=== PATIENT | female | born 1995 | race Caucasian/White ===

== ENCOUNTER 2019-06-05 11:03 | Emergency (ER) | payer OTHER ==
[~2019-06-05] VITALS: Ht 165.1 cm; Wt 50.0 kg
[2019-06-05 12:12] LABS: BASOPHILS % (AUTO) 0.8 % (0-1); EOSINOPHILS # (AUTO) 0.2 X10'3 (0-0.9); EOSINOPHILS % (AUTO) 3.2 % (0-6); HEMATOCRIT 43.4 % (35.0-45.0); LYMPHOCYTES # (AUTO) 2.8 X10'3 (1.1-4.8); LYMPHOCYTES % (AUTO) 46.1 % (21-51); MEAN CORPUSCULAR HEMOGLOBIN 31.8 PG (27.0-31.0); MEAN CORPUSCULAR HGB CONC 34.5 g/dL (33.0-36.5); MEAN CORPUSCULAR VOLUME 91.9 FL (78-98); MEAN PLATELET VOLUME 8.6 FL (7.4-10.4); MONOCYTES # (AUTO) 0.5 X10'3 (0-0.9); MONOCYTES % (AUTO) 8.5 % (2-12); NEUTROPHILS # (AUTO) 2.5 X10'3 (1.8-7.7); NEUTROPHILS % (AUTO) 41.4 % (42-75); PLATELET COUNT 215 X10'3 (140-440); RED BLOOD COUNT 4.72 X10'6 (4.20-5.60); RED CELL DISTRIBUTION WIDTH 13.6 % (11.5-14.5); WHITE BLOOD COUNT 6.1 X10'3 (4.5-11.0)
[2019-06-05 12:46] LABS: ALANINE AMINOTRANSFERASE 20 U/L (12-78); ALBUMIN 4.3 G/DL (3.4-5.0); ALBUMIN/GLOBULIN RATIO 1.1 (1.1-1.5); ALKALINE PHOSPHATASE 71 IU/L (46-116); ANION GAP 8 (8-16); ASPARTATE AMINO TRANSFERASE 19 U/L (10-37); BILIRUBIN,TOTAL 0.8 MG/DL (0.1-1.0); BLOOD UREA NITROGEN 7 MG/DL (7-18); BUN/CREATININE RATIO 10.4 (6.6-38.0); CALCIUM 9.2 MG/DL (8.5-10.1); CHLORIDE 107 MMOL/L (99-107); CREATININE 0.67 MG/DL (0.40-0.90); GLUCOSE 90 MG/DL (70-104); POTASSIUM 3.8 MMOL/L (3.5-5.1); SODIUM 142 MMOL/L (135-145); TOTAL CARBON DIOXIDE 27.5 MMOL/L (24-32); TOTAL PROTEIN 8.3 G/DL (6.4-8.2); eGFR > 90 ML/MIN
[2019-06-05 12:55] VITALS: BP 130/76
[2019-06-05 13:25] LABS: URINE HCG NEGATIVE (NEG)
[2019-06-05 13:27] LABS: CLARITY,URINE CLOUDY (Clear); COLOR,URINE YELLOW (Yellow); GLUCOSE, URINE NEGATIVE (Neg); KETONES,URINE NEGATIVE (Neg); LEUKOCYTE ESTERASE ,URINE NEGATIVE (Neg); NITRITES, URINE POSITIVE (Neg); OCCULT BLOOD,URINE NEGATIVE (Neg); PROTEIN,URINE NEGATIVE (Neg)
[2019-06-05 13:28] LABS: UA COLLECTION TYPE CLN CATCH MIDSTREAM
[2019-06-05 13:32] LABS: SQUAMOUS EPITHELIAL CELL,UR MANY /LPF (FEW)
[2019-06-05 13:33] LABS: BACTERIA,URINE 4+ /HPF (Neg); RBC,URINE NONE SEEN /HPF (0-2); WBC,URINE 0-4 /HPF (0-4)
== END 2019-06-05 13:37 | disposition home or self-care (01) ==
LOC: ER 11:03
DX: K59.00 Constipation, unspecified (principal); R10.32 Left lower quadrant pain
CPT/HCPCS: 36415; 80053; 81001; 81025; 85025; 85610; 99283

== ENCOUNTER 2020-10-13 16:56 | Emergency (ER) | payer MEDICAID, OTHER ==
[~2020-10-13] VITALS: Ht 165.1 cm; Wt 47.7 kg
== END 2020-10-13 18:05 | disposition home or self-care (01) ==
LOC: ER 16:56
DX: R13.10 Dysphagia, unspecified (principal); J02.9 Acute pharyngitis, unspecified; R50.9 Fever, unspecified; F12.90 Cannabis use, unspecified, uncomplicated; F17.200 Nicotine dependence, unspecified, uncomplicated
CPT/HCPCS: 87081; 87880; 99283

== ENCOUNTER 2021-02-17 15:47 | Emergency (ER) | payer OTHER, MEDICAID ==
[~2021-02-17] VITALS: Ht 165.1 cm; Wt 47.7 kg
[2021-02-17 16:57] VITALS: BP 103/73
== END 2021-02-17 16:59 | disposition home or self-care (01) ==
LOC: ER 15:48
DX: S00.03XA Contusion of scalp, initial encounter (principal); R51.9 Headache, unspecified; M25.522 Pain in left elbow; R11.2 Nausea with vomiting, unspecified; F12.90 Cannabis use, unspecified, uncomplicated; V87.7XXA Person injured in collision between other specified motor vehicles (traffic), initial encounter; Y93.89 Activity, other specified; Y92.89 Other specified places as the place of occurrence of the external cause; Y99.8 Other external cause status
CPT/HCPCS: 73080; 99283

== ENCOUNTER 2022-11-03 05:35 | Emergency (ER) | payer MEDICAID ==
[~2022-11-03] VITALS: Ht 167.6 cm; Wt 54.5 kg
[2022-11-03 05:41] VITALS: BP 148/105
== END 2022-11-03 08:50 | disposition home or self-care (01) ==
LOC: ER 05:36
DX: S90.32XA Contusion of left foot, initial encounter (principal); F12.90 Cannabis use, unspecified, uncomplicated; Z79.899 Other long term (current) drug therapy; Z98.890 Other specified postprocedural states; W22.8XXA Striking against or struck by other objects, initial encounter; Y93.89 Activity, other specified; Y92.89 Other specified places as the place of occurrence of the external cause; Y99.8 Other external cause status
CPT/HCPCS: 73630; 99283

== ENCOUNTER 2023-03-11 19:10 | Emergency (ER) | payer MEDICAID ==
[~2023-03-11] VITALS: Ht 167.6 cm; Wt 49.1 kg
[2023-03-11 19:13] VITALS: BP 109/68; PULSE 67; RESP 14; TEMP 98.3; O2SAT 100
[2023-03-11] MEDS ORDERED: AMOX-580 PO (22:15)
[2023-03-11] MEDS ORDERED: amox tr/potassium clavulanate 875/125mg TAB PO ONE (22:15)
== END 2023-03-11 22:21 | disposition home or self-care (01) ==
LOC: ER 19:11
DX: J02.9 Acute pharyngitis, unspecified (principal); R22.1 Localized swelling, mass and lump, neck; F12.90 Cannabis use, unspecified, uncomplicated; Z79.2 Long term (current) use of antibiotics
CPT/HCPCS: 87880; 99283

== ENCOUNTER 2023-09-07 08:01 | Emergency (ER) | payer MEDICAID ==
[~2023-09-07] VITALS: Ht 167.6 cm; Wt 50.5 kg
[2023-09-07 08:21] VITALS: PULSE 68
[2023-09-07 09:53] LABS: URINE HCG NEGATIVE (NEG)
[2023-09-07 09:58] LABS: BILIRUBIN,URINE NEGATIVE (Neg); CLARITY,URINE SLIGHTLY CLOUDY (Clear); COLOR,URINE YELLOW (Yellow); GLUCOSE, URINE NEGATIVE (Neg); KETONES,URINE NEGATIVE (Neg); LEUKOCYTE ESTERASE ,URINE NEGATIVE (Neg); NITRITES, URINE NEGATIVE (Neg); OCCULT BLOOD,URINE NEGATIVE (Neg); PROTEIN,URINE NEGATIVE (Neg); UROBILINOGEN,URINE 0.2 E.U/dL (0.2-1.0)
[2023-09-07 10:03] LABS: UA COLLECTION TYPE CLN CATCH MIDSTREAM
[2023-09-07 10:04] LABS: BACTERIA,URINE 2+ /HPF (Neg); MUCUS STRANDS MODERATE /LPF (Neg); RBC,URINE 0-2 /HPF (0-2); SQUAMOUS EPITHELIAL CELL,UR MANY /LPF (FEW); TRANSITIONAL EPI CELLS,URINE FEW /HPF
[2023-09-07 10:05] LABS: WBC,URINE 0-4 /HPF (0-4)
[2023-09-07 10:08] VITALS: RESP 16
[2023-09-07 10:16] VITALS: BP 113/67; TEMP 98; O2SAT 100
== END 2023-09-07 10:18 | disposition home or self-care (01) ==
LOC: ER 08:02
DX: N83.292 Other ovarian cyst, left side (principal); F12.10 Cannabis abuse, uncomplicated; F15.10 Other stimulant abuse, uncomplicated
CPT/HCPCS: 76830; 76856; 81001; 81025; 93976; 99284